=== PATIENT | female | born 1975 | race Caucasian/White ===

== ENCOUNTER 2018-04-02 12:39 | Emergency (ER) | payer OTHER ==
[2018-04-02 13:32] VITALS: BP 117/76
--- NOTE | 2018-04-02 14:00 | UC ---
Respiratory Complaint HPI - HPI Summary HPI Summary: C/O URI sx x 5 days with laryngitis x 4 days. Lost voice. has left frontal spenoid sinus pain. A lot of post nasal drip and ear congestion. - History of Current Complaint Chief Complaint: UCRespiratory Stated Complaint: COUGH CONGESTION Time Seen by Provider: 04/02/18 13:50 Hx Obtained From: Patient Hx Last Menstrual Period: 03/30/18 ?: No Onset/Duration: Sudden Onset, Lasting Days - 5, Worse Since - last 3 days Timing: Constant Severity Initially: Mild Severity Currently: Moderate Pain Intensity: 0 Character: Cough: Nonproductive Aggravating Factors: Deep Breaths, Recumbent Position Alleviating Factors: Nothing Associated Signs And Symptoms: Positive: Wheezing, URI, Nasal Congestion, Sinus Discomfort Related History: Seasonal Allergies - Allergies/Home Medications Allergies/Adverse Reactions: Allergies Allergy/AdvReac Type Severity Reaction Status Date / Time environmental Allergy Runny Nose Uncoded 04/02/18 13:25 Home Medications: Home Medications Levothyroxine TAB* [Synthroid 137 MCG TAB*] 137 mcg PO DAILY 04/02/18 [History Confirmed 04/02/18] guaiFENesin ER TAB [Mucinex*] 600 mg PO BID PRN 04/02/18 [History Confirmed 01/15] PMH/Surg Hx/FS Hx/Imm Hx Endocrine History: Hypothyroidism - Surgical History Surgical History: Yes Surgery Procedure, Year, and Place: tonsils 1986; exploratory abdominal surgery - Family History Known Family History: Positive: Diabetes - Social History Occupation: Employed Full-time Lives: Dormitory/Roommates Alcohol Use: None Substance Use Type: None Smoking Status (MU): Never Smoked Tobacco - Immunization History Most Recent Tetanus Shot: 10 yrs Review of Systems Constitutional: Fatigue ENT: Sore Throat, Ear Ache, Nasal Discharge, Sinus Pain/Tenderness Respiratory: Shortness Of Breath - after the coughing fits, Cough Is Patient Immunocompromised?: No All Other Systems Reviewed And Are Negative: Yes Physical Exam Triage Information Reviewed: Yes Appearance: No Pain Distress, Ill-Appearing, Obese Vital Signs: Initial Vital Signs Temp 98.1 F 04/02/18 13:27 Pulse 84 04/02/18 13:27 Resp 18 04/02/18 13:27 BP 117/76 04/02/18 13:27 Pulse Ox 98 04/02/18 13:27 Vital Signs Reviewed: Yes Eyes: Positive: Conjunctiva Clear ENT: Positive: Pharynx normal, Nasal congestion - with allergic changes, TMs normal Neck exam: Normal Respiratory: Positive: Wheezing - expiratory wheeze Cardiovascular Exam: Normal Musculoskeletal Exam: Normal Neurological Exam: Normal Psychological Exam: Normal Skin Exam: Normal UC Diagnostic Evaluation - Laboratory O2 Sat by Pulse Oximetry: 98 Respiratory Course/Dx - Differential Dx/Diagnosis Differential Diagnosis/HQI/PQRI: Asthma, Laryngitis, Lower Resp Infection, Sinusitis Provider Diagnoses: Acute URI with laryngitis. Acute sinusitis. Acute bronchospasm Discharge - Sign-Out/Discharge Documenting (check all that apply): Discharge/Admit/Transfer - Discharge Plan Condition: Stable Disposition: HOME Prescriptions: Albuterol HFA INHALER* [Ventolin HFA Inhaler*] 2 puff INH Q4H PRN #1 mdi PRN Reason: Wheezing Amoxicillin PO (*) [Amoxicillin 875 MG (*)] 875 mg PO BID #20 tab Fluconazole [Fluconazole 150 mg tab] 150 mg PO ONCE #1 tablet predniSONE [Prednisone 20 MG TAB] 20 mg PO DAILY #18 tablet Patient Education Materials: Sinusitis (ED), Amoxicillin (By mouth), Bronchospasm (ED), Prednisone (By mouth) Forms: *Work Release Referrals: LEONIDAS Rayo [Primary Care Provider] - Additional Instructions: NEILMED SINUS RINSE: CHECK OUT AT [facility] Saline nasal wash helps with mucous, allergies and congestion. It can be used up to twice a day or only as needed. Use lukewarm tap water. It does not have to be sterilized or distilled water. Do 1/3 on each side and snort out of both nostrils. Repeat the process with 1/6 of the bottle on each side with snorting in between to finish the solution in the bottle - Billing Disposition and Condition Condition: STABLE Disposition: HOME
== END 2018-04-02 14:14 | disposition home or self-care (01) ==
LOC: UCCORT 12:39
DX: J06.9 Acute upper respiratory infection, unspecified (principal); J01.90 Acute sinusitis, unspecified; J02.9 Acute pharyngitis, unspecified; J98.01 Acute bronchospasm; E03.9 Hypothyroidism, unspecified; Z83.3 Family history of diabetes mellitus
CPT/HCPCS: 99212; G0463